=== PATIENT | female | born 1960 | race Caucasian/White ===

== ENCOUNTER 2017-10-05 16:24 | Emergency (ER) | payer OTHER ==
[~2017-10-05] VITALS: Ht 160 cm; Wt 99.8 kg
[~2017-10-05 16:24] MED LIST: BENADRYL50 MG PO; DELTASONE20 MG PO; HYDRODIURIL25 MG PO; KCL PO; NAPROSYN500 MG PO; SYNTHROID,LEVO75 MCG PO
[2017-10-05 16:26] VITALS: BP 151/71
== END 2017-10-05 18:46 | disposition home or self-care (01) ==
LOC: ED 16:24
DX: S93.401A Sprain of unspecified ligament of right ankle, initial encounter (principal); S90.01XA Contusion of right ankle, initial encounter; Z90.710 Acquired absence of both cervix and uterus; Z98.890 Other specified postprocedural states; Z79.899 Other long term (current) drug therapy; X50.1XXA Overexertion from prolonged static or awkward postures, initial encounter; Y93.89 Activity, other specified; Y92.89 Other specified places as the place of occurrence of the external cause; Y99.9 Unspecified external cause status

== ENCOUNTER → 2018-05-03 | Outpatient (CLI) | payer OTHER | END | disposition home or self-care (01) | LOC: LAB 12:57 | DX: R63.5 Abnormal weight gain (principal) ==

== ENCOUNTER → 2018-05-04 | Outpatient (CLI) | payer OTHER | END | disposition home or self-care (01) | LOC: LAB 12:58 | DX: R63.5 Abnormal weight gain (principal) ==

== ENCOUNTER → 2018-05-05 | Outpatient (CLI) | payer OTHER ==
[2018-05-05 13:01] LABS: FREE T4 1.29 ng/dl (0.76-1.46)
[2018-05-05 13:07] LABS: THYROID STIM HORMONE (HS) 2.73 uIU/ml (0.358-4.75)
[2018-05-06 10:05] LABS: CREATININE,URINE 225.8 mg/dL (Not Estab.)
== END | disposition home or self-care (01) ==
LOC: LAB 11:56
PROVIDERS: Internal Medicine Endocrinology, Diabetes & Metabolism
DX: E11.9 Type 2 diabetes mellitus without complications (principal); E03.9 Hypothyroidism, unspecified; R63.5 Abnormal weight gain

== ENCOUNTER 2022-05-10 11:07 | Emergency (ER) | payer OTHER ==
[~2022-05-10] VITALS: Ht 157.4 cm; Wt 90.7 kg
[2022-05-10 12:21] LABS: BASO # 0.1 10*3/uL (0.0-0.1); BASO % 0.5 % (0.0-1.0); EOS % 0.2 % (1.0-4.0); HEMATOCRIT 45.8 % (37.0-47.0); LYMPH # 2.1 10*3/uL (1.3-4.4); LYMPH % 18.1 % (27.0-41.0); MEAN CELL VOLUME 88.9 fl (81.0-99.0); MEAN CORPUSCULAR HGB 31.1 pg (27.0-31.0); MEAN CORPUSCULAR HGB CONC 34.9 g/dl (33.0-37.0); MEAN PLATELET VOLUME 10.4 fl (9.6-12.3); MONO # 0.6 10*3/uL (0.1-1.0); MONO % 5.7 % (3.0-9.0); NEUT # 8.5 10*3/uL (2.3-7.9); NEUT % 75.2 % (47.0-73.0); PLATELET COUNT AUTOMATED 386 10*3/uL (130-400); RED BLOOD COUNT 5.15 10*6/uL (4.10-5.10); RED CELL DISTRI WIDTH 13.6 % (0-14.5); WHITE BLOOD COUNT 11.3 10*3/uL (4.8-10.8)
[2022-05-10 12:37] VITALS: BP 154/79
[2022-05-10 12:39] LABS: ALKALINE PHOSPHATASE 74 U/L (46-116); BUN 16 mg/dl (9-23); CHLORIDE 101 mmol/L (98-107); POTASSIUM 2.8 mmol/L (3.4-5.1); SGPT/ALT 46 U/L (10-49); TOTAL PROTEIN 7.5 gm/dL (6.0-8.0)
== END 2022-05-10 14:49 | disposition home or self-care (01) ==
LOC: ED 11:07
PROVIDERS: Internal Medicine
DX: E87.6 Hypokalemia (principal); I10 Essential (primary) hypertension; Z90.710 Acquired absence of both cervix and uterus

== ENCOUNTER 2024-08-04 13:38 | Emergency (ER) | payer OTHER ==
[~2024-08-04] VITALS: Ht 157.4 cm; Wt 106.6 kg
[2024-08-04 13:49] VITALS: BP 171/77
[2024-08-04] MEDS ORDERED: LOSARTAN POTASS25 M1 PO (14:29)
[2024-08-04] MEDS ORDERED: MAGNESIUM OXID400 MG PO (14:30)
[2024-08-04] MEDS ORDERED: POTASSIUM CHLO10 MEQ PO (14:30)
== END 2024-08-04 14:45 | disposition home or self-care (01) ==
LOC: ED 13:38
DX: S63.502A Unspecified sprain of left wrist, initial encounter (principal); Z79.899 Other long term (current) drug therapy; Z90.710 Acquired absence of both cervix and uterus; X50.0XXA Overexertion from strenuous movement or load, initial encounter; X50.9XXA Other and unspecified overexertion or strenuous movements or postures, initial encounter; Y93.89 Activity, other specified; Y92.89 Other specified places as the place of occurrence of the external cause; Y99.0 Civilian activity done for income or pay

== ENCOUNTER → 2024-08-29 | Outpatient (CLI) | payer OTHER ==
[~2024-08-29] MED LIST changes: +LOSARTAN POTASS25 M1 PO; +MAGNESIUM OXID400 MG PO; +POTASSIUM CHLO10 MEQ PO
== END | disposition home or self-care (01) ==
LOC: ORTHO 14:33
PROVIDERS: ATTEND Orthopaedic Surgery
DX: S63.502D Unspecified sprain of left wrist, subsequent encounter (principal); M79.89 Other specified soft tissue disorders; X58.XXXD Exposure to other specified factors, subsequent encounter

== ENCOUNTER → 2024-10-01 | Outpatient (CLI) | payer OTHER | END | disposition home or self-care (01) | LOC: ORTHO 09-29 13:56 | PROVIDERS: ATTEND Orthopaedic Surgery | DX: S63.502A Unspecified sprain of left wrist, initial encounter (principal); M19.032 Primary osteoarthritis, left wrist; X58.XXXA Exposure to other specified factors, initial encounter; Y93.89 Activity, other specified; Y92.89 Other specified places as the place of occurrence of the external cause; Y99.8 Other external cause status ==